=== PATIENT | female | born 1945 | race Caucasian/White ===

== ENCOUNTER → 2018-07-18 | Outpatient (CLI) | payer MEDICARE, BC | LOC: COL.RAD 09:45 | DX: N18.3 Chronic kidney disease, stage 3 (moderate) (principal); N28.89 Other specified disorders of kidney and ureter ==

== ENCOUNTER → 2019-04-04 | Outpatient (CLI) | payer MEDICARE | LOC: COL.RAD 13:47 | DX: M54.5 Low back pain (principal) ==

== ENCOUNTER → 2019-04-11 | Outpatient (CLI) | payer MEDICARE | LOC: COL.RAD 13:34 | DX: M51.26 Other intervertebral disc displacement, lumbar region (principal) ==

== ENCOUNTER → 2019-04-28 | Outpatient (CLI) | payer MEDICARE | LOC: COL.RAD 10:55 | DX: R93.2 Abnormal findings on diagnostic imaging of liver and biliary tract (principal); Z90.49 Acquired absence of other specified parts of digestive tract | CPT/HCPCS: Q9967 ==

== ENCOUNTER → 2019-05-13 | Outpatient (CLI) | payer MEDICARE | LOC: MC.RAD 15:30 | DX: Z12.31 Encounter for screening mammogram for malignant neoplasm of breast (principal); N63.10 Unspecified lump in the right breast, unspecified quadrant; N64.89 Other specified disorders of breast; Z85.3 Personal history of malignant neoplasm of breast ==

== ENCOUNTER → 2019-05-14 | Outpatient (CLI) | payer MEDICARE | LOC: COL.RAD 14:15 | DX: Z12.31 Encounter for screening mammogram for malignant neoplasm of breast (principal); R93.2 Abnormal findings on diagnostic imaging of liver and biliary tract; Z01.812 Encounter for preprocedural laboratory examination; K76.9 Liver disease, unspecified; I70.0 Atherosclerosis of aorta | CPT/HCPCS: Q9967 ==

== ENCOUNTER → 2019-05-30 | Outpatient (CLI) | payer MEDICARE | LOC: MC.RAD 10:30 | DX: N63.11 Unspecified lump in the right breast, upper outer quadrant (principal) ==

== ENCOUNTER 2019-07-17 15:36 | Emergency (ER) | payer MEDICARE ==
[~2019-07-17] VITALS: Ht 154.9 cm; Wt 63.6 kg
[~2019-07-17 15:36] MED LIST: FOLIC ACID 11 MG/TA1 PO; GLUCOTROL XL2.5 MG PO; INDERAL40 MG PO; LASIX 40MG TABL40 MG PO; LEVEMIR FLEX100 U/ML SQ; LIPITOR 40MG TA40 MG PO; NEXIUM 24HR20 M1 PO; NORCO 325 MG-51 TAB PO; PAXIL 20MG20 MG PO; VALIUM 5MG T5 MG/TAB PO
[2019-07-17 16:18] LABS: BASO # 0.1 (0.0-0.2); BASO % 0.7 % (0.0-2.0); EOS # 0.3 (0.0-0.7); EOS % 3.1 % (0-4.0); GRAN # 6.2 (1.4-6.5); GRAN % 73.2 % (42.2-75.2); HEMOGLOBIN 10.9 g/dl (12.5-16.0); LYMPH # 1.4 (1.2-3.4); LYMPH % 16.9 % (20.0-51.0); MEAN CELL VOLUME 91 fl (80.0-100.0); MEAN CORPUSCULAR HEMOGLOBIN 30 pg (27.0-31.0); MEAN CORPUSCULAR HGB CONC 33 g/dl (33.0-37.0); MONO # 0.5 (0.1-0.6); MONO % 5.9 % (1.7-9.3); PLATELET COUNT 279 K/mm3 (130-400); REDCELL DISTRIBUTION WIDTH-CV 14.5 % (11.5-14.5)
[2019-07-17 16:19] LABS: HEMATOCRIT 32.9 % (37.0-47.0)
[2019-07-17 16:25] LABS: ALBUMIN 4.2 gm/dL (3.5-5.0); BILIRUBIN,TOTAL 0.4 mg/dL (0.0-1.0); CALCIUM 9.4 mg/dL (8.4-10.2); CREATININE, serum 1.34 (0.52-1.25); POTASSIUM 4.3 mmol/L (3.4-5.0); TOTAL PROTEIN 7.2 gm/dL (6.4-8.2)
--- NOTE | 2019-07-17 16:56 | NUR ---
HUMBERTO ayala responded to the ED for a neonatal social worker consult due to the patient needing resources. 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 The patient receives nursing services that the insurance pays for from [facility] x weekly. The patient attempted to contact [address] [place] [address] but they have not contacted her back. HUMBERTO ayala to contact [address] [place] [address] for the patient. The patient reports she has a son that lives in [place] that will be support. The patient has a sister, Iva, an uncle,Mckay Chambers, and brother, Craig who will be her support during her chemo treatments. HUMBERTO ayala provided Medicare.gov's list of home health agencies and [place] [facility] for the patient to consider for her mother's care during this time. HUMBERTO ayala inquired about grocery shopping and the patient reports she has had [employer] delivery when she lived in [place] and will consider having them deliver her groceries. HUMBERTO ayala collaborated the above information with the patient's nurse and ED doctor.
[2019-07-17 17:06] LABS: COLLECTION METHOD CLEAN CATCH
[2019-07-17 17:26] LABS: MUCOUS Present /lpf; PH 5 (5-8); SQUAMOUS EPITHELIAL 0-2 /hpf; URINE APPEARANCE Hazy; URINE BACTERIA Rare /hpf; URINE BILIRUBIN Negative (NEGATIVE); URINE BLOOD 1+ (NEGATIVE); URINE COLOR Yellow; URINE GLUCOSE 2+ (NEGATIVE); URINE KETONE Negative (NEGATIVE); URINE LEUKOCYTE ESTERASE Negative (NEGATIVE); URINE NITRATE Negative (NEGATIVE); URINE PROTEIN(semi-quant) 2+ (NEGATIVE); URINE RBC 0-2 /hpf; URINE UROBILINOGEN Negative (NEGATIVE)
[2019-07-17 17:43] VITALS: BP 136/51; PULSE 75; TEMP 98.4
== END 2019-07-17 18:15 | disposition home or self-care (01) ==
LOC: COL.ER 15:36
PROVIDERS: Family Medicine
DX: C50.919 Malignant neoplasm of unspecified site of unspecified female breast (principal); R53.1 Weakness; W19.XXXA Unspecified fall, initial encounter
CPT/HCPCS: J7030

== ENCOUNTER 2019-11-13 13:56 | Inpatient (IN) | payer MEDICARE ==
[~2019-11-13] VITALS: Ht 154.9 cm; Wt 61.7 kg
[2019-11-13 15:45] LABS: BASO # 0.1 (0.0-0.2); BASO % 0.6 % (0.0-2.0); EOS # 0.1 (0.0-0.7); EOS % 0.7 % (0-4.0); GRAN # 6.1 (1.4-6.5); GRAN % 67.7 % (42.2-75.2); HEMOGLOBIN 10.1 g/dl (12.5-16.0); LYMPH # 1.8 (1.2-3.4); LYMPH % 20.4 % (20.0-51.0); MEAN CELL VOLUME 88 fl (80.0-100.0); MEAN CORPUSCULAR HEMOGLOBIN 29 pg (27.0-31.0); MEAN CORPUSCULAR HGB CONC 33 g/dl (33.0-37.0); MEAN PLATELET VOLUME 8.9 fl (7.4-10.4); MONO # 0.9 (0.1-0.6); MONO % 10.3 % (1.7-9.3); PLATELET COUNT 344 K/mm3 (130-400); RED BLOOD COUNT 3.52 M/mm3 (4.10-5.30); REDCELL DISTRIBUTION WIDTH-CV 14.4 % (11.5-14.5)
[2019-11-13 16:00] LABS: ALANINE AMINOTRANSFERASE 9 U/L (4-34); ALBUMIN 3.8 gm/dL (3.5-5.0); ALKALINE PHOSPHATASE 130 U/L (50-136); ANION GAP 8 mmol/L (7-16); AST,SGOT 21 U/L (15-37); BILIRUBIN,TOTAL 0.5 mg/dL (0.0-1.0); BLOOD UREA NITROGEN 23 mg/dL (7-17); C-REACTIVE PROTEIN 3.7 mg/dL (0.0-0.9); CALCIUM 9.1 mg/dL (8.4-10.2); CARBON DIOXIDE 27 mmol/L (22-30); CHLORIDE 101 mmol/L (98-107); CREATININE, serum 1.53 (0.52-1.25); GLUCOSE 131 mg/dL (74-106); LIPASE 33 U/L (23-300); POTASSIUM 4.2 mmol/L (3.4-5.0); SODIUM 137 mmol/L (137-145); TOTAL PROTEIN 7.1 gm/dL (6.4-8.2)
[2019-11-13 16:10] LABS: TROPONIN-I < 0.012 ng/mL (0.000-0.035)
[2019-11-13 16:36] LABS: COLLECTION METHOD CATHETER
[2019-11-13 16:44] LABS: PH 5 (5-8); URINE APPEARANCE Cloudy; URINE BACTERIA Rare /hpf; URINE BILIRUBIN Negative (NEGATIVE); URINE BLOOD 1+ (NEGATIVE); URINE COLOR Yellow; URINE GLUCOSE Negative (NEGATIVE); URINE KETONE Negative (NEGATIVE); URINE LEUKOCYTE ESTERASE Negative (NEGATIVE); URINE NITRATE Negative (NEGATIVE); URINE PROTEIN(semi-quant) 2+ (NEGATIVE); URINE UROBILINOGEN Negative (NEGATIVE)
[2019-11-13 17:52] VITALS: BP 156/62; PULSE 75; TEMP 98.4
--- NOTE | 2019-11-13 19:21 | NUR ---
patiet is alert and oriented, hard of hearing. 1-1 assist. report given to night nurse AYDIN Gordon.
[2019-11-13 19:24] VITALS: BP 133/60; PULSE 85; TEMP 98.7
--- NOTE | 2019-11-13 20:25 | NUR ---
Patient assessed at this time. Alert and oriented, and able to make needs known. Patient put on high fall risk due to recent history of falls. Voices understanding. Denies having pain and discomfort at this time. Peripheral IV to left hand. Denies having SOB and dypsnea. LS CTA. Respirations even and unlabored. HRR. Capillary refill less than 3 seconds. Non-tenting skin turgor. BSAx4. Abdomen soft and non-tender. 1+ edema BLE. Voices no questions, needs, or concerns at this time. Resting in bed with call light within reach.
--- NOTE | 2019-11-13 21:47 | NUR ---
Upon reviewing ordes, patient has orders for telemetry. Called tele, and updated. Getting new box and will dog license officer supervisor at this time.
[2019-11-13 23:42] VITALS: BP 161/63; PULSE 74; TEMP 98.6
[2019-11-14 03:02] VITALS: BP 158/60; PULSE 83; TEMP 99.5
--- NOTE | 2019-11-14 05:30 | NUR ---
Patient has denied having pain and discomfort this shift. High fall risk precautions in place. One assist with going to the bathroom. Denies having any questions, needs, or concerns. Resting in bed with call light within reach.
--- NOTE | 2019-11-14 05:55 | NUR ---
Patient complaining of level 10 pain to right leg at this time. Given PRN APAP per orders. Voices no further questions, needs, or concerns at this time.
[2019-11-14 06:50] LABS: BASO # 0.1 (0.0-0.2); BASO % 0.6 % (0.0-2.0); EOS # 0.2 (0.0-0.7); EOS % 2.4 % (0-4.0); GRAN # 4.8 (1.4-6.5); GRAN % 62.1 % (42.2-75.2); HEMATOCRIT 30.1 % (37.0-47.0); HEMOGLOBIN 9.7 g/dl (12.5-16.0); LYMPH # 1.9 (1.2-3.4); MEAN CELL VOLUME 89 fl (80.0-100.0); MEAN CORPUSCULAR HEMOGLOBIN 29 pg (27.0-31.0); MEAN CORPUSCULAR HGB CONC 32 g/dl (33.0-37.0); MEAN PLATELET VOLUME 9.2 fl (7.4-10.4); MONO # 0.7 (0.1-0.6); MONO % 9.5 % (1.7-9.3); PLATELET COUNT 361 K/mm3 (130-400); REDCELL DISTRIBUTION WIDTH-CV 14.5 % (11.5-14.5)
[2019-11-14 07:01] VITALS: BP 150/64; PULSE 89; TEMP 99.4
[2019-11-14 07:10] LABS: ALBUMIN 3.5 gm/dL (3.5-5.0); BILIRUBIN,TOTAL 0.5 mg/dL (0.0-1.0); CREATININE, serum 1.35 (0.52-1.25); POTASSIUM 3.7 mmol/L (3.4-5.0); TOTAL PROTEIN 6.8 gm/dL (6.4-8.2)
[2019-11-14 07:32] LABS: TSH w REFLEX 1.75 uIU/mL (0.465-4.680)
--- NOTE | 2019-11-14 10:08 | NUR ---
Pt assessment completed and charted, medications administered per MAR. Pt is A&O, sitting in bed, post working with therapy. Pt has LH INT IV that flushes w/o complications. Pt on room air, breathing is even and unlabored, denies SOB at this time. Pt denies any significant knee pain but has chronic bilateral knee pain. Denies need for pain medication at this time. Pt denies N/V/D, chest pain, or palpitations. No further needs at this time.
[2019-11-14 15:26] VITALS: BP 141/60; PULSE 70; TEMP 98.8
--- NOTE | 2019-11-14 15:28 | NUR ---
Manager Of [facility] contacted patient on her cell (ph#[phone]) to discuss discharge planning. Patient lives in [place] with her mom although patient reports her mom is currently at [facility]. Patient sees Dr. Pina for primary care and obtains medications from [facility]. Patient has a cane and walker at home. SW discussed PT/OT recommendations with patient who is agreeable to have referrals sent to [facility]. SW contacted Queta [facility] Director who will screen referral. SW contacted Cony at [facility] and faxed referral. Patient states her emergency contact would be her son, Shola (ph#[phone]). Patient states her sister, Kat is also a contact (ph#[phone]). SW to continue to follow.
--- NOTE | 2019-11-14 15:44 | NUR ---
Pt assisted to bathroom, 1 assist with walker, pt moves slowly and needs assistance getting in and out of bed, pt weak. Pt states she is having knee pain and currently rating it 9/10, provided with tylenol PRN per MAR. No other concerns expressed.
--- NOTE | 2019-11-14 15:48 | NUR ---
Maintenance Scheduler spoke with Titus at [facility] to provide update on discharge plan. SW to continue to follow.
--- NOTE | 2019-11-14 16:48 | NUR ---
Cony from [facility] advised they can accept referral. SW to continue to follow.
--- NOTE | 2019-11-14 17:33 | NUR ---
Pt BS checked, reading 60, provided with juice. Dinner will be served shortly and recheck BS. No further needs.
--- NOTE | 2019-11-14 17:36 | NUR ---
JOANNA sandy, patient at 102.
[2019-11-14 19:17] VITALS: BP 127/50; PULSE 76; TEMP 98.8
--- NOTE | 2019-11-14 20:45 | NUR ---
Patient assessed at this time. Alert and oriented x 4, and able to make needs known. Denies having pain and discomfort at this time. Peripheral IV to left hand. LS CTA. Respirations even and unlabored. Denies SOB and dyspnea. HRR. Murmur present. Telemetry: normal sinus. Capillary refill less than 3 seconds. Non-tenting skin turgor. BSAx4. Abdomen soft and non-tender. 1+ edema BLE. Voices no questions, needs, or concerns at this time. Resting in bed with call light within reach.
[2019-11-14 23:11] VITALS: BP 124/46; PULSE 72; TEMP 99.2
[2019-11-15 03:45] VITALS: BP 134/48; PULSE 65; TEMP 99.2
--- NOTE | 2019-11-15 05:46 | NUR ---
Patient has been calling for assistance with going to the bathroom. No complaints of pain or discomfort until this morning. Given PRN APAP as requested for knee pain.
[2019-11-15 06:55] LABS: CALCIUM 9.1 mg/dL (8.4-10.2); CREATININE, serum 1.54 (0.52-1.25); POTASSIUM 3.6 mmol/L (3.4-5.0)
[2019-11-15 07:12] LABS: BASO # 0.1 (0.0-0.2); BASO % 0.8 % (0.0-2.0); EOS # 0.2 (0.0-0.7); EOS % 2.8 % (0-4.0); GRAN # 5.6 (1.4-6.5); GRAN % 66.5 % (42.2-75.2); LYMPH # 1.7 (1.2-3.4); LYMPH % 19.6 % (20.0-51.0); MEAN CELL VOLUME 89 fl (80.0-100.0); MEAN CORPUSCULAR HGB CONC 32 g/dl (33.0-37.0); MEAN PLATELET VOLUME 9.4 fl (7.4-10.4); MONO # 0.8 (0.1-0.6); MONO % 9.8 % (1.7-9.3); PLATELET COUNT 376 K/mm3 (130-400); RED BLOOD COUNT 3.47 M/mm3 (4.10-5.30); REDCELL DISTRIBUTION WIDTH-CV 14.6 % (11.5-14.5)
[2019-11-15 07:24] LABS: HEMOGLOBIN 9.9 g/dl (12.5-16.0); MEAN CORPUSCULAR HEMOGLOBIN 29 pg (27.0-31.0)
[2019-11-15 07:38] VITALS: BP 130/49; PULSE 76; TEMP 99
[2019-11-15 10:57] VITALS: BP 106/59; PULSE 68; TEMP 98.5
[2019-11-15 15:41] VITALS: BP 124/49; PULSE 72; TEMP 100
[2019-11-15] MEDS ORDERED: LOVENOX 3030 MG/0.3 SQ (15:58)
[2019-11-15] MEDS ORDERED: TYLENOL 325MG325 MG PO (15:59)
[2019-11-15] MEDS ORDERED: INDERAL40 MG PO (15:59)
[2019-11-15] MEDS ORDERED: ZESTRIL 10MG10 MG PO (15:59)
[2019-11-15] MEDS ORDERED: LEVEMIR100 U/ML SQ (16:00)
[2019-11-15] MEDS ORDERED: NOVOLOG 100U100 U/M1 SQ (16:01)
--- NOTE | 2019-11-15 18:19 | NUR ---
PATIENT DISCHARGED TO [facility] THIS HOSPITAL @ 1820. LEFT UNIT IN ACCOMPANIED BY PCT. PHONE REPORT GIVEN TO LAYO RECEIVING NURSE. TRANSFER PAPERWORK SENT WITH PATIENT. NO QUESTIONS OR CONCERNS AND END OF REPORT.
== END 2019-11-15 18:20 | DRG 92 ==
LOC: COL.ER 13:56 → MEDICAL 17:09
PROVIDERS: Emergency Medicine; Physician Assistant; ADMIT Student in an Organized Health Care Education/Training Program
DX: G72.0 Drug-induced myopathy (principal); I50.32 Chronic diastolic (congestive) heart failure; I13.0 Hypertensive heart and chronic kidney disease with heart failure and stage 1 through stage 4 chronic kidney disease, or unspecified chronic kidney disease; E78.5 Hyperlipidemia, unspecified; I10 Essential (primary) hypertension; K21.9 Gastro-esophageal reflux disease without esophagitis; E11.22 Type 2 diabetes mellitus with diabetic chronic kidney disease; E11.649 Type 2 diabetes mellitus with hypoglycemia without coma; T45.1X5A Adverse effect of antineoplastic and immunosuppressive drugs, initial encounter; N18.9 Chronic kidney disease, unspecified; J84.10 Pulmonary fibrosis, unspecified; G47.00 Insomnia, unspecified; I35.0 Nonrheumatic aortic (valve) stenosis; R53.81 Other malaise; Z92.3 Personal history of irradiation; Z85.3 Personal history of malignant neoplasm of breast; Z92.21 Personal history of antineoplastic chemotherapy; Z79.4 Long term (current) use of insulin; Z88.0 Allergy status to penicillin; Z88.2 Allergy status to sulfonamides; Z88.6 Allergy status to analgesic agent
CPT/HCPCS: 99222-AI; 99231-AI; 99239; J1650; J1815; J7030

== ENCOUNTER 2019-11-15 16:49 | Inpatient (IN) | payer MEDICARE ==
[~2019-11-15] VITALS: Ht 154.9 cm; Wt 59.8 kg
[~2019-11-15 16:49] MED LIST changes: +LEVEMIR100 U/ML SQ; +LOVENOX 3030 MG/0.3 SQ; +NOVOLOG 100U100 U/M1 SQ; +TYLENOL 325MG325 MG PO; +ZESTRIL 10MG10 MG PO
--- NOTE | 2019-11-15 20:00 | NUR ---
Received report from AYDIN Cole. Pt is currently sitting up in bed. Her call light is within reach and her bed is in lowest position and alarm is on.
[2019-11-15 21:58] VITALS: BP 151/56; PULSE 93; TEMP 98.2
--- NOTE | 2019-11-15 23:00 | NUR ---
Pt is currently lying in bed. Pt does not have any complaints of pain at this time. Pt was able to take her night medication with water. Pt did have a snack before bed. Pt vitals were within normal limits, lungs sounds were clear, heart sounds were normal S1 and S2 sounds. Pt bowel sounds were audible in all quads. Pt was able to ambulate to the rest room with a gait belt and walker. Pt has her call light within reach and her bed is in lowest position and her alarm is on.
--- NOTE | 2019-11-16 03:32 | NUR ---
Pt has slept well during the night the pt just got back in bed. She called to go to the restroom at about 0300. Pt has her call light within reach and her bed is in lowest position. Pt has been tolerating fluids well. Pt bed alarm is on.
[2019-11-16 06:20] VITALS: BP 142/54; PULSE 81; TEMP 98.4
--- NOTE | 2019-11-16 07:27 | NUR ---
Reported off to AYDIN Cole. Pt sitting up in bed eating her breakfast. Call light within reach and bed in lowest position and bed alarm on.
--- NOTE | 2019-11-16 10:28 | NUR ---
Patient resting in bed at this time, call light in reach, bed alarm set. Patient was a Mod assist with walker requiring staff to help with lifting her stand, but after she was standing only required staff to hold on to steady her at times with her gait belt. Will continue to monitor.
--- NOTE | 2019-11-16 13:52 | NUR ---
SW conducted interview via telephone. Patient indicated that she resides at home alone and that her mother is currently at [facility]. Patient reported that she did not have anyone for care support, but that she has a sister named Iva [phone] who lives in [facility] and a son that lives in [place] (Shola). Patient reported that she did not have a DPOA, and that Dr. Pina is her PCP, she does not have any upcoming appointments. Patient reports that she currently uses a walker, and that she takes 2 units of O2 at night. Patient rports that she gets her emdications from [facility] on with no concerns. Patient reports that she does receive [facility] services on . SW will continue to follow.
[2019-11-16 17:19] VITALS: BP 135/43; PULSE 62; TEMP 98.3
--- NOTE | 2019-11-16 19:26 | NUR ---
Patient tolerated diet well this shift. Patient had a family member drop off some items for her today: ipad, clothes, shoes, billfold. These items were documented in the Initial assessment items list. Patient received some educational material this afternoon. Denied any questions this evening.
--- NOTE | 2019-11-16 19:26 | NUR ---
PATIENT RESTING IN BED DURING CHANGE OF SHIFT REPORT FROM DAY SHIFT NURSEYUDELKA. BED ALARM ON. NO NEEDS REPORTED.
--- NOTE | 2019-11-16 19:33 | NUR ---
Reported off to night nurse.
--- NOTE | 2019-11-17 00:18 | NUR ---
PATIENT SLEEPING, DOES NOT AWAKEN WHEN DOOR TO ROOM IS OPENED BY STAFF, OBSERVING BREATHING NONLABORED AND EVEN. BED ALARM ON.
[2019-11-17] MEDS ORDERED: VALIUM 5MG T5 MG/TAB PO (00:39)
--- NOTE | 2019-11-17 00:52 | NUR ---
PATIENT REQUESTING SLEEPING PILL, STATES NORMALLY TAKES VALIUM AT HOME "IT'S THE ONLY THING THAT HELPS ME SLEEP". CALLED HOSPITALIST/PROVIDER SHIRT IRONER SUPERVISOR, IZA, REPORTED PATIENT'S REQUEST, ORDER PUT IN BY PROVIDER. INFORMED PATIENT OF ORDER GIVEN AND WILL GIVE WHEN MED AVAILABLE. NO OTHER NEEDS REPORTED. BED ALARM ON.
[2019-11-17 03:07] VITALS: BP 135/46; PULSE 68; TEMP 98.4
--- NOTE | 2019-11-17 04:40 | NUR ---
Patient sleeping, does not awaken when door to room is opened by staff, breathing nonlabored and even. Bed alarm on.
--- NOTE | 2019-11-17 05:33 | NUR ---
FSBS RESULT 76, AGREED TO OFFER OF ORANGE JUICE PRIOR TO BREAKFAST TRAYS ARRIVAL. NO OTHER NEEDS REPORTED. BED ALARM ON.
[2019-11-17 06:36] LABS: BASO # 0.1 (0.0-0.2); BASO % 0.7 % (0.0-2.0); EOS # 0.3 (0.0-0.7); EOS % 3.1 % (0-4.0); GRAN # 5.3 (1.4-6.5); GRAN % 63.8 % (42.2-75.2); HEMOGLOBIN 11.5 g/dl (12.5-16.0); LYMPH # 1.9 (1.2-3.4); LYMPH % 22.5 % (20.0-51.0); MEAN CELL VOLUME 89 fl (80.0-100.0); MEAN CORPUSCULAR HEMOGLOBIN 29 pg (27.0-31.0); MEAN CORPUSCULAR HGB CONC 33 g/dl (33.0-37.0); MEAN PLATELET VOLUME 9.3 fl (7.4-10.4); MONO # 0.8 (0.1-0.6); MONO % 9.4 % (1.7-9.3); PLATELET COUNT 399 K/mm3 (130-400); RED BLOOD COUNT 3.91 M/mm3 (4.10-5.30); REDCELL DISTRIBUTION WIDTH-CV 14.3 % (11.5-14.5)
[2019-11-17 06:40] LABS: HEMATOCRIT 34.8 % (37.0-47.0)
[2019-11-17 06:49] LABS: ALBUMIN 3.8 gm/dL (3.5-5.0); BILIRUBIN,TOTAL 0.4 mg/dL (0.0-1.0); CALCIUM 9.6 mg/dL (8.4-10.2); CREATININE, serum 1.43 (0.52-1.25); POTASSIUM 3.8 mmol/L (3.4-5.0); TOTAL PROTEIN 7.3 gm/dL (6.4-8.2)
--- NOTE | 2019-11-17 07:03 | NUR ---
PATIENT RESTING IN BED DURING CHANGE OF SHIFT REPORT GIVEN TO DAY SHIFT NURSEDRAKE. BED ALARM ON.
--- NOTE | 2019-11-17 11:20 | NUR ---
SW met with the patient to introduce oneself and to dicuss any concerns or needs. The patient states "everything is okay." Will continue to monitor.
[2019-11-17 16:01] VITALS: BP 113/46; PULSE 59; TEMP 98.2
--- NOTE | 2019-11-17 19:25 | NUR ---
PATIENT RESTING IN BED DURING CHANGE OF SHIFT REPORT FROM DAY SHIFT NURSEDRAKE. BED ALARM TURNED ON, PATIENT REMINDED TO CALL FOR ALL OUT OF BED ACTIVITIES.
--- NOTE | 2019-11-18 01:04 | NUR ---
PATIENT SLEEPING, DOES NOT AWAKEN WHEN ROOM ENTERED BY STAFF AND OBSERVED BREATHING NONLABORED AND EVEN. BED ALARM ON.
--- NOTE | 2019-11-18 03:13 | NUR ---
Patient sleeping, does not awaken when door to room is opened by staff. Observed breathing pattern as nonlabored and even. Bed alarm on.
[2019-11-18 05:16] VITALS: BP 105/51; PULSE 56; TEMP 97.5
--- NOTE | 2019-11-18 07:16 | NUR ---
Patient sleeping in bed during change of shift report given to day shift nurseViktoriya. Patient aroused with name and gentle shaking by staff. Bed alarm on.
--- NOTE | 2019-11-18 08:40 | NUR ---
PT IN BED SLEEPING, RAISED VOICE REQUIRED TO GET PT ATTENTION, PT HARD OF HEARING BILATERALLY. PT COMPLAINT OF YANET KNEE PAIN, KPAD READJUSTED TO LAY ON YANET KNEES, PT STATED THAT HELPED HER DISCOMFORT, PT ALERT AND ORIENTED, PT PLEASANT, MEDICATIONS GIVEN, ASSESSMENT PERFORMED, SLIGHT YANET ANKLE EDEMA NOTED, NO OTHER NEEDS AT THIS TIME.
--- NOTE | 2019-11-18 09:03 | NUR ---
Clinical Liaison had left message w/ [employer] on 11/15/19, regarding admission to [facility]. She contacted them on 11/17/19 & received reference auth #[id number] & was told no clinicals are needed during hospitalization.
--- NOTE | 2019-11-18 09:26 | NUR ---
JULIANA MERIDA, REPORTED THAT PT UTILIZED WALKER TO MAKE IT TO BATHROOM, PT CONTINENT, WEARS BRIEF, PERFORMED TOILETING ABILITIES INDEPENDENTLY.
--- NOTE | 2019-11-18 13:05 | NUR ---
Admission QIM scores were reviewed by the team. Code of 4 for toileting hygiene was determined by team discussion to be the most usual performance before interventions for this patient during the assessment period. Code of 3 chosen for rolling left to right was determined by team discussion to be the most usual performance before interventions for this patient during the assessment period. Code of 3 chosen for chair/bed to chair transfer was determined by team discussion to be the most usual performance for this patient during the assessment period.--Queta Trivedi, PD
--- NOTE | 2019-11-18 14:52 | NUR ---
NO SNACK BROUGHT UP FROM KITCHEN.
--- NOTE | 2019-11-18 15:31 | NUR ---
SW met with the patient and the patient's son, Shola (via telephone) to discuss the family meeting choices 11/18 at 1330 or 1345 or 11/19 at 1300. The patient and Shola were agreeable to a family meeting on Sunday, 11/18, via telephone at 1330. Will continue to follow.
[2019-11-18 15:38] VITALS: BP 103/39; PULSE 67; TEMP 98.2
--- NOTE | 2019-11-18 15:47 | NUR ---
JULIANA MERIDA, NOTIFED ME OF A BP OF 103/39. THIS ALONG THE SAME SIMILAR TREND THROUGHOUT THE DAY. SERG OLIVAREZ NOTIFIED AND STATED THEY WOULD HOLD LISINOPRIL TOMORROW.
--- NOTE | 2019-11-18 17:00 | NUR ---
PT STAND BY ASSIST TO BATHROOM. PT INDEPENDENT WITH SITTING, STANDING FROM COMMODE AND WIPING HERSELF, PERFORMING HAND HYGIENE BY HERSELF, PT REFUSED ORAL HYGIENE TODAY SINCE SHE NORMALLY DOESN'T WEAR HER DENTURES, PT HAD STEADY GAIT USING WALKER DURING AMBULATION TO RESTROOM. PT USES CALL LIGHT WHEN SHE NEEDS TO GET UP.
--- NOTE | 2019-11-18 18:45 | NUR ---
PATIENT RESTING IN BED DURING CHANGE OF SHIFT REPORT FROM DAY SHIFT NURSEBRANDON. BED ALARM ON, NO NEEDS REPORTED.
--- NOTE | 2019-11-19 00:27 | NUR ---
PATIENT SLEEPING, DOES NOT AWAKEN WHEN DOOR TO ROOM IS OPENED BY STAFF. OBSERVED BREATHING NONLABORED AND EVEN. BED ALARM ON.
[2019-11-19 04:34] VITALS: BP 113/43; PULSE 70; TEMP 98.1
--- NOTE | 2019-11-19 07:35 | NUR ---
PATIENT RESTING IN BED DURING CHANGE OF SHIFT REPORT GIVEN TO DAY SHIFT NURSEDRAKE. BED ALARM ON.
[2019-11-19 13:25] VITALS: BP 111/48; PULSE 63; TEMP 97.9
--- NOTE | 2019-11-19 16:27 | NUR ---
FLEX attended a family meeting today with the patient and the patient's son, Shola (via telephone). Also present was Queta, [facility] Director, PT/OT. Queta started the meeting with it's purpose. PT/OT then discussed the patient's progress. All questions and concerns were addressed. The patient's tentative discharge date is Sunday, 11/21 with home health services. After the meeting, FLEX met with the patient to discuss home health. The patient already receives services with [facility] and would like to continue with them. The patient's son was agreeance with continuing with the current agency. Shola was also concerned about the patient's depression and receiving services for mental health. FLEX contacted Ely with [facility] to confirm that they have a mental health nurse on staff. FLEX attempted to contact Shola to give him this information, left message. Will continue to follow.
--- NOTE | 2019-11-19 21:34 | NUR ---
PT IN BED, IS ALERT AND ORIENTED X4, SLIGHTLY HARD OF HEARING. TAKES HS MEDS INCLUDING VALIUM FOR SLEEP. ASSISTED TO BATHROOM, SLOW STEADY GAIT. BED ALARM ON WHEN RETURNED TO BED.
--- NOTE | 2019-11-20 02:00 | NUR ---
Assisted to bathroom, voids and back to bed. Was incontinent and depends were changed.
[2019-11-20 05:59] VITALS: BP 143/62; PULSE 73; TEMP 97.7
--- NOTE | 2019-11-20 06:06 | NUR ---
VS taken, assisted to bathroom and back to bed. Pt did not want to stay up in chair at this time.
--- NOTE | 2019-11-20 07:22 | NUR ---
REPORT FROM GABY PERRIN. PT SLEPT THROUGH REPORT.
--- NOTE | 2019-11-20 09:48 | NUR ---
PT UP WITH THERAPY, AM MEDS GIVEN ORDERED, PT TOOK MEDICATIONS WITH APPLE SAUCE INDEPENDENTLY. OT WORKING WITH PT AT THIS TIME.
--- NOTE | 2019-11-20 14:36 | NUR ---
FLEX faxed updates to Ely at [facility]. FLEX contacted the patient's son, Shola to inform him that [facility] does have a mental health services. He was pleased to here this. Will continue to monitor.
--- NOTE | 2019-11-20 15:30 | NUR ---
ASSISTED PT TO BATHROOM. PT HAD LG FORMED STOOL AND VOIDED THEN RETURNED TO BED.
[2019-11-20 16:39] VITALS: BP 131/48; PULSE 64; TEMP 98.3
--- NOTE | 2019-11-20 18:55 | NUR ---
REPORT TO AXEL PERRIN
--- NOTE | 2019-11-20 20:00 | NUR ---
Received report from AYDIN Calabrese. Pt currently lying in bed. Pt ambulated to the restroom with walker, gait belt and stand by assistance. Pt has her call light within reach and her bed is in lowest position and alarm is on .
--- NOTE | 2019-11-20 23:35 | NUR ---
Pt is curently sleeping in bed. Pt has no complaints of pain at this time. Pt lungs sounds were clear and heart sounds were normal S1 and S2 sounds. Pt was able to take all he evening medications. She requested to take them with applesause. She also requested one of there Valium 5 mg to help her rest well tonight. She ambulated to the bathroom with gait belt and walker, stand by assistance was needed. She has no other concerns at this time. Her call light is within reach and her bed is in lowest position and alarm is on.
--- NOTE | 2019-11-21 04:32 | NUR ---
Pt currently sleeping in bed. Pt has her call light within reach and her bed is in lowest position
--- NOTE | 2019-11-21 04:34 | NUR ---
Pt called out for something for pain. Pt stated that her pain was at a 9. She was given pain medication at this time. Pt ABD pad was changed and area was cleaned with soapy water and dried.There is still bloody yellow drainage from underneath her pannus area Pt has not had another bowel movement. She stated that she is passing gas. Pt in back in bed and call light is within reach.
[2019-11-21 05:19] VITALS: BP 132/48; PULSE 75; TEMP 98.4
--- NOTE | 2019-11-21 06:48 | NUR ---
Pt ambulated to the restroom with gait belt and walker, standby assist. Pt is now back in be and her call light is within reach and her bed is in lowest position and alarm is on.
--- NOTE | 2019-11-21 07:32 | NUR ---
Reported off to AYDIN Cole. Pt has ate her breakfast. She is sittin up in her bed. Her call light is within reach and her bed is in lowest positon.
--- NOTE | 2019-11-21 10:29 | NUR ---
Patient resting in bed at this time, call light in reach and alarm is set. Patient attending therapies today. Given prn Tylenol for bilateral knee pain and low back pain.
[2019-11-21] MEDS ORDERED: ZESTRIL 10MG10 MG PO (11:22)
[2019-11-21] MEDS ORDERED: GLUCOTROL XL2.5 MG PO (11:26)
[2019-11-21 16:50] VITALS: BP 126/55; PULSE 63; TEMP 98.3
--- NOTE | 2019-11-21 19:27 | NUR ---
Patient resting in bed is independent in her room. She has tolerated diet well this shift. Denies any questions. Appointment has been scheduled for PCP, but Pulmonology office was closed today so she will need to follow up with Dr. Nguyen this next week. See discharge appointments for details.
--- NOTE | 2019-11-21 21:30 | NUR ---
PT UP AND ABOUT IN ROOM. FEEL STEADY. USES WHEELED WALKER. DENIES PAIN BUT REQUEST VALIUM FOR SLEEP. ENC TO CALL STAFF IF UNSTEADY AT ALL. ACCUCHECK 307. GAVE SCHEDULED LEVEMIER AND SSI. ENC PT TO EAT ALL OF HS SNACK. CALL LIGHT IN REACH.
[2019-11-22 05:50] VITALS: BP 130/56; PULSE 68; TEMP 98.2
--- NOTE | 2019-11-22 07:40 | NUR ---
Patient in bed resting. Alert and oriented x3. Assessment complete. Denies pain at this time. Patient up to restroom, stand by assist with walker, states she always feels a little stiff when she first gets up in the AM. Steady gait. Denies further needs at this time.
--- NOTE | 2019-11-22 08:00 | NUR ---
PATIENT RESTING IN BED. PATIENT IS A&O x3. ASSESSMENT COMPLETE AND MEDICATIONS GIVEN. PATIENT INDEPENDENT TO BATHROOM. NO FURTHER NEEDS AT THIS TIME.
--- NOTE | 2019-11-22 10:01 | NUR ---
SW informed of DC, Attempted call to son Shola, no answer or Identifiable VM. no message left. Faxed DC orders to [facility] at [phone]. Spoke with nurse they are able to admit tomorrow or sunday. Nothing Follows
[2019-11-22 12:06] VITALS: BP 144/52; PULSE 66; TEMP 97.5
--- NOTE | 2019-11-22 12:40 | NUR ---
Discharge education provided to patient. Educated on follow up appointment and when to call physician. All questions answered. Patient dressed independently. Denies pain or further needs at this time. Patient out by wheelchair with surgical staff.
== END 2019-11-22 12:40 | disposition home or self-care (01) | DRG 948 ==
PROVIDERS: ADMIT Internal Medicine
DX: R53.81 Other malaise (principal); I50.32 Chronic diastolic (congestive) heart failure; I13.0 Hypertensive heart and chronic kidney disease with heart failure and stage 1 through stage 4 chronic kidney disease, or unspecified chronic kidney disease; G72.9 Myopathy, unspecified; E11.649 Type 2 diabetes mellitus with hypoglycemia without coma; E11.22 Type 2 diabetes mellitus with diabetic chronic kidney disease; E78.5 Hyperlipidemia, unspecified; I08.0 Rheumatic disorders of both mitral and aortic valves; K21.9 Gastro-esophageal reflux disease without esophagitis; G47.00 Insomnia, unspecified; N18.9 Chronic kidney disease, unspecified; J84.10 Pulmonary fibrosis, unspecified; Z79.4 Long term (current) use of insulin; Z88.0 Allergy status to penicillin; Z88.2 Allergy status to sulfonamides; Z88.6 Allergy status to analgesic agent; Z85.3 Personal history of malignant neoplasm of breast
CPT/HCPCS: 99222-AI; 99231-AI; 99232-AI; 99239; J1650; J1815

== ENCOUNTER 2019-12-23 13:52 | Emergency (ER) | payer MEDICARE ==
[~2019-12-23] VITALS: Ht 154.9 cm; Wt 60.5 kg
[2019-12-23 13:56] VITALS: TEMP 98.2
[2019-12-23 14:28] LABS: BASO % 0.5 % (0.0-2.0); EOS # 0.2 (0.0-0.7); EOS % 2.5 % (0-4.0); GRAN # 5.8 (1.4-6.5); GRAN % 77.2 % (42.2-75.2); HEMOGLOBIN 11.5 g/dl (12.5-16.0); LYMPH % 13.4 % (20.0-51.0); MEAN CELL VOLUME 90 fl (80.0-100.0); MEAN CORPUSCULAR HEMOGLOBIN 30 pg (27.0-31.0); MEAN CORPUSCULAR HGB CONC 33 g/dl (33.0-37.0); MEAN PLATELET VOLUME 9.6 fl (7.4-10.4); MONO # 0.5 (0.1-0.6); PLATELET COUNT 155 K/mm3 (130-400); RED BLOOD COUNT 3.82 M/mm3 (4.10-5.30); REDCELL DISTRIBUTION WIDTH-CV 14.3 % (11.5-14.5)
[2019-12-23] MEDS ORDERED: LEVEMIR FLEX100 U/ML SQ (14:30)
[2019-12-23 14:32] LABS: ALBUMIN 3.6 gm/dL (3.5-5.0); BILIRUBIN,TOTAL 0.4 mg/dL (0.0-1.0); CALCIUM 9.3 mg/dL (8.4-10.2); CREATININE, serum 1.09 (0.52-1.25); POTASSIUM 4.3 mmol/L (3.4-5.0); TOTAL PROTEIN 6.6 gm/dL (6.4-8.2)
[2019-12-23 14:37] LABS: HEMATOCRIT 34.4 % (37.0-47.0)
[2019-12-23 14:56] LABS: COLLECTION METHOD CLEAN CATCH
[2019-12-23 15:02] LABS: PH 7 (5-8); SQUAMOUS EPITHELIAL None Seen /hpf; URINE APPEARANCE Clear; URINE BACTERIA None Seen /hpf; URINE BILIRUBIN Negative (NEGATIVE); URINE BLOOD Negative (NEGATIVE); URINE COLOR Straw; URINE GLUCOSE Negative (NEGATIVE); URINE KETONE Negative (NEGATIVE); URINE LEUKOCYTE ESTERASE Negative (NEGATIVE); URINE NITRATE Negative (NEGATIVE); URINE PROTEIN(semi-quant) 2+ (NEGATIVE); URINE RBC 0-2 /hpf; URINE UROBILINOGEN Negative (NEGATIVE)
[2019-12-23 15:25] VITALS: BP 148/47; PULSE 80
== END 2019-12-23 15:26 | disposition home or self-care (01) ==
LOC: COL.ER 13:52
PROVIDERS: Nurse Practitioner
DX: E11.649 Type 2 diabetes mellitus with hypoglycemia without coma (principal); I10 Essential (primary) hypertension; Z79.4 Long term (current) use of insulin

== ENCOUNTER 2020-02-10 19:30 | Observation (INO) | payer MEDICARE, OTHER ==
[~2020-02-10] VITALS: Ht 154.9 cm; Wt 59.0 kg
[2020-02-10 20:16] LABS: ARTERIAL BLD GAS TCO2 CT 29.7; ARTERIAL BLOOD GAS BASE EXCESS 3.7 (-2-2); ARTERIAL BLOOD GAS HCO3 28.4 meq/L (22-26); ARTERIAL BLOOD GAS PCO2 42.9 mmHg (35-45); ARTERIAL BLOOD GAS pH 7.44 (7.35-7.45)
[2020-02-10 20:29] LABS: BASO # 0.1 (0.0-0.2); BASO % 0.6 % (0.0-2.0); EOS # 0.1 (0.0-0.7); EOS % 0.9 % (0-4.0); GRAN # 6.3 (1.4-6.5); GRAN % 70.8 % (42.2-75.2); HEMOGLOBIN 11.2 g/dl (12.5-16.0); LYMPH # 1.7 (1.2-3.4); LYMPH % 19.2 % (20.0-51.0); MEAN CELL VOLUME 88 fl (80.0-100.0); MEAN CORPUSCULAR HEMOGLOBIN 30 pg (27.0-31.0); MEAN CORPUSCULAR HGB CONC 33 g/dl (33.0-37.0); MEAN PLATELET VOLUME 9.3 fl (7.4-10.4); MONO # 0.7 (0.1-0.6); MONO % 8.2 % (1.7-9.3); PLATELET COUNT 239 K/mm3 (130-400); REDCELL DISTRIBUTION WIDTH-CV 13.2 % (11.5-14.5)
[2020-02-10 20:45] LABS: HEMATOCRIT 33.6 % (37.0-47.0)
[2020-02-10 20:53] LABS: ALBUMIN 3.5 gm/dL (3.5-5.0); BILIRUBIN,TOTAL 0.7 mg/dL (0.0-1.0); CREATININE, serum 1.09 (0.52-1.25); TOTAL PROTEIN 6.8 gm/dL (6.4-8.2)
[2020-02-10 21:08] LABS: COLLECTION METHOD CATHETER
[2020-02-10 21:13] LABS: MUCOUS Present /lpf; PH 6 (5-8); SQUAMOUS EPITHELIAL 0-2 /hpf; URINE APPEARANCE Clear; URINE BACTERIA Rare /hpf; URINE BILIRUBIN Negative (NEGATIVE); URINE BLOOD 2+ (NEGATIVE); URINE COLOR Yellow; URINE GLUCOSE 1+ (NEGATIVE); URINE KETONE 1+ (NEGATIVE); URINE LEUKOCYTE ESTERASE Negative (NEGATIVE); URINE NITRATE Negative (NEGATIVE); URINE PROTEIN(semi-quant) 3+ (NEGATIVE); URINE RBC 0-2 /hpf; URINE UROBILINOGEN Negative (NEGATIVE)
[2020-02-11] VITALS (8 sets, daily range): BP systolic 134–188; BP diastolic 50–79; PULSE 56–71; TEMP 97.6–98.9
--- NOTE | 2020-02-11 00:23 | NUR ---
PATIENT ARRIVES TO UNIT VIA THE CART FROM THE EMERGENCY ROOM. PATIENT IS ALERT AND ORIENTATED BUT CAN BE FORGETFUL. PATIENT IS VERY WEAK. PATIENT CAN BARELY LIFT HER LEGS OFF OF THE BED. PATIENT HAS AN IV IN HER RIGHT AC THAT HAS FLUIDS INFUSING AT 100 ML/HR. PATIENT USUALLY WEARS DENTURES BUT DOES NOT HAVE THEM IN CURRENTLY. PATIENT IS VERY HARD OF HEARING AND LEFT HER HEARING AIDES AT HOME. PATIENT SAID SHE HAD SOME DISCOMFORT IN HER NECK BUT THOUGHT IT WAS DUE TO THE WAY SHE HAD LAID PREVIOUSLY. PATIENT IS ONLY SOMEWHAT AWARE OF HER MEDICATIONS SO I DID THE MED REC THE BEST THAT WE COULD GET DONE. PATIENT USED THE BED GOLD.
--- NOTE | 2020-02-11 00:59 | NUR ---
DID A BEDSIDE SWALLOW STUDY. PATIENT WAS ABLE TO DRINK WATER AND NOT HAVE ANY DIFFICULTIES
--- NOTE | 2020-02-11 05:01 | NUR ---
since the patient has been up on the floor, she has been sleeping pretty soundly. we have been using the bed lainez with this patient as this nurse feels that the patient is very weak as it is hard for her to lift her legs off of the bed. patient has remained alert and orientated through the shift. patient has scored a 4 on the stroke scale because of her legs and not being able to really resist any pressure that is exerted on them. patient has call light within reach. will continue to monitor. will report off to day shift.
--- NOTE | 2020-02-11 08:45 | NUR ---
Assessment complete. Patient asleep in bed on entry. Awoke with stimulation but ueffected by voice. She was very drowsy through assessment but is orientedx4. Extremities are still very weak, pt could only lift legs approx. 1in off the bed. Hand graps were also very weak but equal. IV site is CD&I, currently infusing at 100 ml/hr. Patient chose to return to sleep upon my departure from room. Will continue to monitor. No other needs at this time. Call light is in reach.
--- NOTE | 2020-02-11 14:13 | NUR ---
Pt has been stable since arriving back from her MRI this morning. She has been napping comfortably. Woke pt for lunch, set up and made sure she was comfortable. She continues to be alert and oriented x4 but extreme weakness is still present in arms and legs. Will continue to monitor. No other needs at this time. Call light is in reach, fall precautions are in place.
--- NOTE | 2020-02-11 15:37 | NUR ---
SW's met with the patient to discuss discharge plan. The patient lives in [place] with her mother. Her mother is at [facility] for rehab at this time. The patient reports independence with ADLs and has a cane and walker. She receives private duty services 3xs a week for two hours from [facility]. The patient's PCP is Dr. Tato Pina and she receives her medications from [facility]. She reports no difficulties obtaining her meds. The patient does not have advanced directives in EMR, but she reports that she does have them completed and that her son, Shola Fink (ph#[phone]), is her DPOA-HC. Shola lives in [place]. PT/OT worked with the patient and recommend SNF. FLEX discussed this with the patient. The patient is agreeable to rehab and chose 1) [facility] 2) [facility]. FLEX then contacted the patient's son, Shola, and he confirmed the above information. He agrees that the patient is not safe to return straight home upon discharge and would need post-acute rehab. He agreed with the patient's preferences. Shola confirms that he is the patient's DPOA-HC and he states that he can email the documents to FLEX tomorrow. FLEX provided him with FLEX's email address. FLEX contacted and faxed a referral to both facilities. SW awaiting their screens.
--- NOTE | 2020-02-11 17:34 | NUR ---
PT BLOOD SUGAR 35 PER REPORT FROM MANAGER SOCIAL SERVICES. SOY ULRICH NOTIFIED, HYPOGLYCEMIC PROTOCOL INITIATED, 1/2 AMP D50 ADMINISTERED. WILL RECHECK SUGAR IN 15 MINUTES AND CONTINUE TO MONITOR.
--- NOTE | 2020-02-11 17:39 | NUR ---
BLOOD SUGAR RECHECK 136. PATIENT REMAINS DROWSY BUT AROUSABLE TO VOICE, HAS BEEN DROWSY MOST OF THE DAY. nO FURTHER NEEDS. WILL CONTINUE TO MONITOR.
--- NOTE | 2020-02-11 17:58 | NUR ---
pT IS NOW STABLE AND MORE ALERT. SHE MOVED FROM RECLINER BACK TO BED VIA 2 ASSIST AT THIS TIME. SHE IS NOW COMFORTABLE IN BED. REMINDED HER TO CALL WHEN SHE NEEDS TO USE THE RESTROOM OR BECOMES WET FROM INCONTINENCE, SHE STATED SHE UNDERSTOOD. NO OTHER NEEDS AT THIS TIME. CALL LIGHT IS IN REACH.
--- NOTE | 2020-02-11 20:00 | NUR ---
Blood glucose 68 at this time. PCT in room at this time helping pt eat dinner and drink orange juice. Will continue to monitor blood glucose once pt finishes eating dinner.
--- NOTE | 2020-02-11 20:50 | NUR ---
Pt assessment completed and documented. Pt just recently finished eating dinner with assistance from PCT. Pt was able to eat about 40% of dinner. Pt resting in bed and is drowsy at this time, however will arouse when you say her name and talk to her. Pt oriented x4 and answers questions appropriately. Generalized weakness noted. IVF infusing per orders to right ac IV site. Pt denies any other needs at this time. Call light within reach. Bed alarm on. Will continue to monitor.
--- NOTE | 2020-02-11 22:10 | NUR ---
BG CHECKED AT THIS TIME- BG 152
[2020-02-12 03:54] VITALS: BP 153/53; PULSE 59; TEMP 98.1
--- NOTE | 2020-02-12 04:54 | NUR ---
Pt had uneventful shift. Pt drowsy throughout most of the night but easily arousable. Pt more alert in room at this time watching television. Pt has remained A&O x4 during the night. Still continues to have complaints of generalized weakness. Denied pain. IVF infusing per orders to right ac IV. Pt denies any other needs. Bed alarm on. Call light within reach.
[2020-02-12 06:54] LABS: BASO % 0.6 % (0.0-2.0); EOS # 0.1 (0.0-0.7); EOS % 1.8 % (0-4.0); GRAN # 4.7 (1.4-6.5); GRAN % 66.9 % (42.2-75.2); HEMOGLOBIN 10.5 g/dl (12.5-16.0); LYMPH # 1.5 (1.2-3.4); LYMPH % 20.9 % (20.0-51.0); MEAN CELL VOLUME 88 fl (80.0-100.0); MEAN CORPUSCULAR HEMOGLOBIN 29 pg (27.0-31.0); MEAN CORPUSCULAR HGB CONC 33 g/dl (33.0-37.0); MEAN PLATELET VOLUME 9.3 fl (7.4-10.4); MONO # 0.7 (0.1-0.6); MONO % 9.5 % (1.7-9.3); PLATELET COUNT 230 K/mm3 (130-400); RED BLOOD COUNT 3.66 M/mm3 (4.10-5.30); REDCELL DISTRIBUTION WIDTH-CV 13.3 % (11.5-14.5)
[2020-02-12 07:00] LABS: CREATININE, serum 1.07 (0.52-1.25); POTASSIUM 3.5 mmol/L (3.4-5.0)
[2020-02-12 07:04] LABS: HEMATOCRIT 32.3 % (37.0-47.0)
[2020-02-12 07:11] VITALS: BP 159/55; PULSE 63; TEMP 98.8
[2020-02-12 11:10] VITALS: BP 143/51; PULSE 67; TEMP 98.8
--- NOTE | 2020-02-12 11:17 | NUR ---
PATIENT IS AWAKE AND ALERT IN BED. ADMINISTERED MEDICATIONS THIS MORNING AND PATIENT WAS ABLE TO TAKE MEDICATIONS WITH APPLESAUCE WITHOUT DIFFICULTY. MOVES EXTREMITIES BUT IS NOTED TO BE VERY WEAK. COMPLAINS OF PAIN TO HER LEFT ANKLE, IS UNSURE OF HOW SHE WOULD HAVE OBTAINED AN INJURY. NO OTHER NEEDS ARE IDENTIFIED. CALL LIGHT AND PERSONAL ITEMS ARE WITHIN REACH.
--- NOTE | 2020-02-12 14:11 | NUR ---
[facility] contacted and reports that the patient has home health services through them for PT/OT.
--- NOTE | 2020-02-12 15:00 | NUR ---
The patient's insurance is denying an inpatient stay. The patient was downgraded to observation status. FLEX and taxonomist, Jane, met with the patient to inform. FLEX presented and read the Medicare Outpatient Observation Notice. The patient verbalized understanding and gave FLEX approval to sign the form on her behalf. FLEX provided her with a copy. FLEX contacted and notified [facility] and [facility] of the patient's status change. Both Cony at [facility] and Krystian at [facility] report that since Medicare is denying an inpatient stay, then a stay at [facility] would be private pay. FLEX contacted and updated the patient's son, Shola. Shola was agreeable for FLEX to send referrals to [facility] and [facility]. FLEX consulted IPR Director, Queta. FLEX attempted to contact Mena at [facility]. FLEX left her a voicemail and faxed the referral. SW awaiting their screens.
[2020-02-12 16:03] VITALS: BP 125/41; PULSE 59; TEMP 98.4
--- NOTE | 2020-02-12 16:39 | NUR ---
Mena, at [facility], reports that they would not have a bed available until the middle of next week. The patient's son was agreeable for FLEX to send referrals to [facility], [facility], [facility] [place], and [facility]. SW faxed referrals to those facilities. SW awaiting screens.
--- NOTE | 2020-02-12 19:18 | NUR ---
REPORT GIVEN TO ONCOMING SHIFT. PATIENT IS SITTING UP IN BED EATING SUPPER. DID SPEAK WITH SON AND GAVE HIM AN UPDATE ON PATIENT STATUS. CALL LIGHT IS WITHIN REACH.
--- NOTE | 2020-02-12 19:30 | NUR ---
Recieved report from Karen. Seen patient awake ,lying in bed. Denies pain. With INT on right AC. She denies pain. She requested for bedpan but upon checking on her briefs she already have a trace of poop. Changed briefs and repositioned patient.
[2020-02-12 20:58] VITALS: BP 147/54; PULSE 64; TEMP 98.6
[2020-02-13 00:22] VITALS: BP 155/51; PULSE 65; TEMP 98.4
[2020-02-13 04:35] VITALS: BP 156/68; PULSE 63; TEMP 98.7
--- NOTE | 2020-02-13 05:00 | NUR ---
Patient asleep but easily awaken. She denies pain. Checked on her briefs and it is wet. Bed linens and briefs were changed.
--- NOTE | 2020-02-13 07:00 | NUR ---
Bedside shift report received from AYDIN Pal. Pt in bed resting without needs, will continue to monitor.
[2020-02-13 09:38] VITALS: BP 147/57; PULSE 66; TEMP 97.7
--- NOTE | 2020-02-13 09:48 | NUR ---
Assessment charted. Pt in chair at side of bed. Alarm on, per PT was a max assist to the chair. Hospitalist rounding, discussed plan for possible IPR screen. INT to R A/C. Portacath to [facility] not accessed since ER. Pt is able to answer all orientation questions but needs a lot of time and frequently having to ask her several times. Will continue to monitor.
--- NOTE | 2020-02-13 10:52 | NUR ---
The patient's son, Shola, emailed a copy of the patient's DPOA-HC to financial counselor, Cheyanne. Financial Counseling then completed a Medicaid application with the patient's son, Shola. Financial Counseling also fowarded the patient's DPOA-HC to FLEX. FLEX placed a copy of the document in the patient's chart. FLEX met with the patient and presented and explained the Medicaid Release Forms to the patient. The patient signed forms. FLEX emailed the signed forms back to Financial Counseling. [facility] reports that they are not in contract with Medicare [employer]. Katrin, of [facility], reports that they are checking the patient's finances but that they most likey will not be able to accept today. Lidia, at [facility], reports that they do not have any beds at this time. Sarah, at [facility], reports that they would need the patient's full Medicaid application. Financial Counseling is unable to release full Medicaid Application. FLEX contacted and updated the patient's son, Shola. Shola would like for FLEX to send a referral to [facility]. FLEX contacted and faxed a referral to [facility]. FLEX then discussed the possiblity of having to private pay at a facility vs the patient returning to his home with resuming home health and private duty services. Shola reports that he needs some time to think about this. FLEX awaiting screens and will continue to follow.
[2020-02-13 12:02] VITALS: BP 148/51; PULSE 67; TEMP 98.3
[2020-02-13] MEDS ORDERED: ZESTRIL 10MG10 MG PO (13:17)
[2020-02-13] MEDS ORDERED: ASPIRIN E.C. 8181 MG PO (13:18)
[2020-02-13] MEDS ORDERED: MELATONIN3 M1 PO (13:19)
[2020-02-13] MEDS ORDERED: NOVOLOG 100U100 U/M1 SQ (13:19)
--- NOTE | 2020-02-13 13:38 | NUR ---
Rebeka, at [facility], reports that they are able to accept the patient and that [facility] is the accepting provider. FLEX informed the patient's son, Shola. Shola is agreeable with the patient going to [facility] and he states that his can provide transport for the patient. FLEX notified the clinical team. The patient is to discharge today, 02/12, to [facility]. Transportation to be by private vehicle, via the patient's [id number] around 1400. No additional needs at this time.
[2020-02-13 13:50] VITALS: BP 148/51; PULSE 67; TEMP 98.3
--- NOTE | 2020-02-13 14:10 | NUR ---
INT dc'd for discharge. Pt prepped for discharge at this time, own clothes soiled so sent in gown. Pt left with all bleongings to be driven to [facility] bed by private vehicle. Left wtih packet. Escorted out to ER entrance via w/c with medical staff. Criteria met.
--- NOTE | 2020-02-15 12:06 | NUR ---
SW received message from [facility] staff stating they needed authorization for PT/OT for patient. SW called to confirm documentation needed, and [facility] staff provided that she was unsure as to what the message recieved was in regards to due to already having documentation. FLEX informed [facility] staff that authorzation for PT/OT will be sent over just in case needed to verify. No additional needs.
== END 2020-02-13 14:30 ==
LOC: COL.ER 19:30 → MEDICAL 21:51
PROVIDERS: Family Medicine; Physician Assistant; ADMIT Hospitalist
DX: M62.82 Rhabdomyolysis (principal); J44.9 Chronic obstructive pulmonary disease, unspecified; J84.10 Pulmonary fibrosis, unspecified; R09.02 Hypoxemia; E78.5 Hyperlipidemia, unspecified; E11.22 Type 2 diabetes mellitus with diabetic chronic kidney disease; I13.0 Hypertensive heart and chronic kidney disease with heart failure and stage 1 through stage 4 chronic kidney disease, or unspecified chronic kidney disease; I50.30 Unspecified diastolic (congestive) heart failure; E11.649 Type 2 diabetes mellitus with hypoglycemia without coma; K21.9 Gastro-esophageal reflux disease without esophagitis; Z85.3 Personal history of malignant neoplasm of breast; N18.9 Chronic kidney disease, unspecified; G47.00 Insomnia, unspecified; Z92.21 Personal history of antineoplastic chemotherapy; Z88.0 Allergy status to penicillin; Z88.5 Allergy status to narcotic agent; Z88.2 Allergy status to sulfonamides; Z79.4 Long term (current) use of insulin; Z79.82 Long term (current) use of aspirin; Z99.81 Dependence on supplemental oxygen; Z87.891 Personal history of nicotine dependence
CPT/HCPCS: 99222-AI; 99231-AI; 99232-AI; A9585; G0378; J1650; J1815; J2060; J7030; J7120

== ENCOUNTER 2020-05-25 17:42 | Inpatient (IN) | payer MEDICARE ==
[~2020-05-25] VITALS: Ht 160 cm; Wt 53.0 kg
[~2020-05-25 17:42] MED LIST changes: +ASPIRIN E.C. 8181 MG PO; +MELATONIN3 M1 PO
[2020-05-25 18:14] LABS: BASO % 0.4 % (0.0-2.0); EOS # 0.1 (0.0-0.7); EOS % 1.7 % (0-4.0); GRAN # 6.6 (1.4-6.5); GRAN % 78.4 % (42.2-75.2); HEMATOCRIT 40.2 % (37.0-47.0); HEMOGLOBIN 12.9 g/dl (12.5-16.0); LYMPH # 1.1 (1.2-3.4); LYMPH % 12.9 % (20.0-51.0); MEAN CELL VOLUME 88 fl (80.0-100.0); MEAN CORPUSCULAR HEMOGLOBIN 28 pg (27.0-31.0); MEAN CORPUSCULAR HGB CONC 32 g/dl (33.0-37.0); MEAN PLATELET VOLUME 9.2 fl (7.4-10.4); MONO # 0.5 (0.1-0.6); MONO % 6.2 % (1.7-9.3); PLATELET COUNT 255 K/mm3 (130-400); RED BLOOD COUNT 4.58 M/mm3 (4.10-5.30); REDCELL DISTRIBUTION WIDTH-CV 14.6 % (11.5-14.5)
[2020-05-25 18:22] LABS: INR 1.1 (0.8-3.0)
[2020-05-25 18:26] LABS: ALBUMIN 4.2 gm/dL (3.5-5.0); ALKALINE PHOSPHATASE 109 U/L (50-136); ANION GAP 15 mmol/L (7-16); AST,SGOT 22 U/L (15-37); BILIRUBIN,TOTAL 0.5 mg/dL (0.0-1.0); BLOOD UREA NITROGEN 20 mg/dL (7-17); C-REACTIVE PROTEIN 0.9 mg/dL (0.0-0.9); CALCIUM 9.5 mg/dL (8.4-10.2); CARBON DIOXIDE 24 mmol/L (22-30); CHLORIDE 98 mmol/L (98-107); CREATININE, serum 0.93 (0.52-1.25); GLUCOSE 123 mg/dL (74-106); SODIUM 137 mmol/L (137-145); TOTAL PROTEIN 7.4 gm/dL (6.4-8.2)
[2020-05-25 18:30] LABS: ALANINE AMINOTRANSFERASE 10 U/L (4-34)
[2020-05-25 18:35] LABS: TROPONIN-I < 0.012 ng/mL (0.000-0.035)
[2020-05-25 19:28] LABS: COLLECTION METHOD CATHETER
[2020-05-25 19:33] LABS: MUCOUS Present /lpf; PH 5 (5-8); SQUAMOUS EPITHELIAL 0-2 /hpf; URINE APPEARANCE Clear; URINE BACTERIA None Seen /hpf; URINE BILIRUBIN Negative (NEGATIVE); URINE BLOOD Negative (NEGATIVE); URINE COLOR Yellow; URINE GLUCOSE Negative (NEGATIVE); URINE KETONE Trace (NEGATIVE); URINE LEUKOCYTE ESTERASE Negative (NEGATIVE); URINE NITRATE Negative (NEGATIVE); URINE PROTEIN(semi-quant) 2+ (NEGATIVE); URINE UROBILINOGEN Negative (NEGATIVE)
[2020-05-25] MEDS ORDERED: ZOLOFT 100MG100 MG PO (19:59)
[2020-05-25] MEDS ORDERED: VALIUM 5MG T5 MG/TAB PO (19:59)
[2020-05-25] MEDS ORDERED: SINEMET 25/101 UDTAB PO (20:09)
[2020-05-25 21:15] VITALS: BP 161/57; PULSE 67; TEMP 98.4
[2020-05-26] VITALS (7 sets, daily range): BP systolic 109–156; BP diastolic 43–60; PULSE 62–74; TEMP 98–98.7
--- NOTE | 2020-05-26 01:18 | NUR ---
pt arrived from ED via bed. assessment completed, pt stated that she could not remember medications and was unable to answer health history questions. this nurse called pt son and obtained history from him. son stated that he does not know his mothers medications and could not remember the last time she took them. pt son stated that his would be able to answer questions on medications but that she had taken her sleeping pill for the night and would not wake until morning. this nurse will notify dayshift nurse of the situation. will continue to monitor.
--- NOTE | 2020-05-26 05:31 | NUR ---
pt sleeping in bed most of night, called for assitance. continues to be alert and oriented, poor memory of health history. no other needs at this time.
[2020-05-26 08:27] LABS: CALCIUM 8.8 mg/dL (8.4-10.2); CREATININE, serum 0.86 (0.52-1.25); POTASSIUM 3.6 mmol/L (3.4-5.0)
[2020-05-26 08:30] LABS: BASO % 0.4 % (0.0-2.0); EOS # 0.2 (0.0-0.7); EOS % 3.3 % (0-4.0); GRAN # 5.5 (1.4-6.5); GRAN % 74.8 % (42.2-75.2); HEMOGLOBIN 11.7 g/dl (12.5-16.0); LYMPH % 13.2 % (20.0-51.0); MEAN CELL VOLUME 88 fl (80.0-100.0); MEAN CORPUSCULAR HEMOGLOBIN 28 pg (27.0-31.0); MEAN CORPUSCULAR HGB CONC 32 g/dl (33.0-37.0); MEAN PLATELET VOLUME 9.9 fl (7.4-10.4); MONO # 0.6 (0.1-0.6); PLATELET COUNT 238 K/mm3 (130-400); RED BLOOD COUNT 4.18 M/mm3 (4.10-5.30); REDCELL DISTRIBUTION WIDTH-CV 14.6 % (11.5-14.5)
[2020-05-26 08:33] LABS: HEMATOCRIT 36.6 % (37.0-47.0)
[2020-05-26] MEDS ORDERED: LEVEMIR FLEX100 U/ML SQ (10:49)
--- NOTE | 2020-05-26 11:01 | NUR ---
Anesthesiologists' Assistant attended clinical rounds. The patient's status is now inpatient. After rounds, SW contacted the patient's [id number], Elisa #[phone] at work. The patient's son did not answer, he was at a doctor's appointment. Hospitalist dicussed the patient's care with Elisa.
--- NOTE | 2020-05-26 11:29 | NUR ---
First visit from the admissions specialist. No needs right now.
--- NOTE | 2020-05-26 16:04 | NUR ---
Medical Practitioners met with the patient to complete initial intake. The patient lives in [place] with her mother. The patient uses a walker daily and has assistance at home from a woman named Kavitha. The patient knew the company was new but did not know the name of the company that provides services. The patient's PCP is Dr. Pina and patient receives medications from [facility]. She states her brother or sister seed cone picker medications for her. The patient has advanced directives in the EMR and designate her son Shola #[phone]. Physical therapy is recommending post acute rehab. SW presented Medicare.[employer]s list of facilities in the [place] area. The patient's first choice is [facility] and second choice is [facility]. Referrals faxed. FLEX contacted the patient's son, Shola to introduce oneself and to review the discharge plan. The patient has a caregiver from 10am-7pm seven days a week [facility]. Shola lives in [place]. He buys groceries for the patient and visits as often as he can. Shola states the patient's mother is at [facility] at this time for rehab. Shola was in agreeance with the patient going to post acute rehab at discharge. FLEX collaborated the above information with the patient's nurse.
--- NOTE | 2020-05-26 21:23 | NUR ---
pt resting in bed, alert and oriented. asessment completed and medications given per MAR. pt requesting something to help her sleep, this nurse gave melatonin prn per orders from CASA Valdez. heart and lung sounds are normal, pt denies pain. no other needs at this time. will continue to monitor.
--- NOTE | 2020-05-26 23:39 | NUR ---
notified by HEBERT Jha that pt blood sugar was 49. gave pt juice and will recheck blood sugar. will continue to monitor.
--- NOTE | 2020-05-27 00:18 | NUR ---
Pt blood sugar was still low at 51, gave dextrose 12.5 mg per hyoglycemic protocol orders. rechecked blood sugar was 135. this nurse updated CASA Valdez and will continue to monitor blood sugar.
[2020-05-27 03:01] VITALS: BP 111/45; PULSE 65; TEMP 98.1
--- NOTE | 2020-05-27 03:41 | NUR ---
Pt blood sugars continue to trend down. gave pt some pudding and will continue to monitor blood sugar. pt stated that she didn't eat much dinner, what was served did not appeal to her. will continue to monitor.
--- NOTE | 2020-05-27 05:45 | NUR ---
pt resting in bed during the night. blood sugar was low at 49, gave dextrose per protocol. continued to monitor blood sugars, started to drop again. gave pt some pudding and blood sugar was 141. pt stated that she did not eat much dinner and that it did not appeal to her. CASA Valdez was updated on the situation throughout the night. no other needs at this time, will continue to monitor.
[2020-05-27 07:11] LABS: BASO % 0.6 % (0.0-2.0); EOS # 0.4 (0.0-0.7); EOS % 6.8 % (0-4.0); GRAN # 3.7 (1.4-6.5); GRAN % 58.8 % (42.2-75.2); HEMOGLOBIN 10.9 g/dl (12.5-16.0); LYMPH # 1.4 (1.2-3.4); MEAN CELL VOLUME 86 fl (80.0-100.0); MEAN CORPUSCULAR HEMOGLOBIN 28 pg (27.0-31.0); MEAN CORPUSCULAR HGB CONC 32 g/dl (33.0-37.0); MEAN PLATELET VOLUME 9.7 fl (7.4-10.4); MONO # 0.7 (0.1-0.6); MONO % 10.6 % (1.7-9.3); PLATELET COUNT 233 K/mm3 (130-400); RED BLOOD COUNT 3.96 M/mm3 (4.10-5.30); REDCELL DISTRIBUTION WIDTH-CV 14.5 % (11.5-14.5)
[2020-05-27 07:13] LABS: HEMATOCRIT 34.2 % (37.0-47.0)
[2020-05-27 07:20] LABS: CALCIUM 9.2 mg/dL (8.4-10.2); CREATININE, serum 0.96 (0.52-1.25); POTASSIUM 3.9 mmol/L (3.4-5.0)
[2020-05-27 07:52] VITALS: BP 124/51; PULSE 69; TEMP 98
--- NOTE | 2020-05-27 08:13 | NUR ---
Pt assessment complete. Pt is sitting up in bed playing on her phone upon entry, she is alert and oriented to self and place. Denies pain at this time. No SOB or cough. Pt had no seizures overnight per report. Up to restroom with heavy one assist. Seizure precautions in place. Call light within reach.
--- NOTE | 2020-05-27 10:08 | NUR ---
Cony from [facility] reports they can accept the patient for post acute rehab.
[2020-05-27 11:28] VITALS: BP 125/47; PULSE 70; TEMP 98
--- NOTE | 2020-05-27 15:35 | NUR ---
Certified Income Tax Preparer contacted the patient's son to provide an update and inform him about [facility] accepting for post acute rehab. He was in agreeance with the patient going there for rehab.
[2020-05-27 15:46] VITALS: BP 130/51; PULSE 60; TEMP 98.1
--- NOTE | 2020-05-27 15:53 | NUR ---
Ruby On Rails Web Developer faxed discharge orders to [facility]. SW will continue to follow.
--- NOTE | 2020-05-27 19:03 | NUR ---
Pt's blood sugars stable through the day. No seizure activities visualized. pt denied any pain. Seizure precautions in place. Report given to AYDIN Joe.
[2020-05-27 19:18] VITALS: BP 133/55; PULSE 73; TEMP 98
--- NOTE | 2020-05-27 21:01 | NUR ---
Resting in bed. Assessment complete. Lungs clear. Heart sounds normal. Bowels active x4. Pulses present throughout. No edema noted. INT left forearm without complications. Patient provided with melatonin at patient request. Denies needs at this time. Call light in reach.
[2020-05-27 23:26] VITALS: BP 129/47; PULSE 69; TEMP 97.8
--- NOTE | 2020-05-27 23:42 | NUR ---
Resting in bed. Denies needs. Denies pain. Call light in reach.
[2020-05-28 03:23] VITALS: BP 130/47; PULSE 71; TEMP 97.9
--- NOTE | 2020-05-28 03:25 | NUR ---
Resting in bed. Denies needs. Call light in reach.
--- NOTE | 2020-05-28 05:07 | NUR ---
Patient had uneventful night. Resting in bed this AM. Call light in reach.
[2020-05-28 06:43] LABS: BASO # 0.1 (0.0-0.2); BASO % 0.9 % (0.0-2.0); EOS # 0.4 (0.0-0.7); EOS % 6.4 % (0-4.0); GRAN % 60.6 % (42.2-75.2); HEMOGLOBIN 11.3 g/dl (12.5-16.0); LYMPH # 1.6 (1.2-3.4); LYMPH % 23.6 % (20.0-51.0); MEAN CELL VOLUME 88 fl (80.0-100.0); MEAN CORPUSCULAR HEMOGLOBIN 28 pg (27.0-31.0); MEAN CORPUSCULAR HGB CONC 32 g/dl (33.0-37.0); MEAN PLATELET VOLUME 9.9 fl (7.4-10.4); MONO # 0.6 (0.1-0.6); MONO % 8.3 % (1.7-9.3); PLATELET COUNT 248 K/mm3 (130-400); RED BLOOD COUNT 4.02 M/mm3 (4.10-5.30); REDCELL DISTRIBUTION WIDTH-CV 14.4 % (11.5-14.5)
[2020-05-28 06:44] LABS: HEMATOCRIT 35.4 % (37.0-47.0)
[2020-05-28 06:55] LABS: CALCIUM 9.3 mg/dL (8.4-10.2); CREATININE, serum 1.02 (0.52-1.25)
--- NOTE | 2020-05-28 07:00 | NUR ---
Report given to AYDIN Calabrese
[2020-05-28 07:43] VITALS: BP 114/69; PULSE 63; TEMP 98.5
[2020-05-28] MEDS ORDERED: PROTONIX 40MG T40 MG PO (07:51)
[2020-05-28] MEDS ORDERED: ZOFRAN ODT4 MG PO (08:03)
--- NOTE | 2020-05-28 10:31 | NUR ---
PT RESTING IN BED. PT TO DISCHARGE TO [facility] LATER TODAY. VSS, PT HAS NOT HAD ANY SIEZURE ACTIVITY THIS AM.
--- NOTE | 2020-05-28 11:14 | NUR ---
REVIEWED DISCHARGE INSTRUCTIONS WITH PATIENT. TAKEN TO FRONT IN WHEEL CHAIR FOR TRANSPORTATION HOME.
--- NOTE | 2020-05-28 16:57 | NUR ---
Crossword Puzzle Maker attended clinical rounds and patient ready for discharge. FLEX contacted Cony at [facility] then faxed updates/orders. FLEX left a message for patient's son, Shola. FLEX was then approached by SERG Avelar who advised patient's son, Shola will be picking up patient and taking her home. FLEX contacted Shola who advised patient has a caregiver from [facility] and that they are in patient's home seven days a week, from 10:00am to 7:00pm. Shola advised he spoke with Dr. Pina's nurse yesterday and they agreed patient could be managed at home. Shola states patient's caregiver is Kavitha who administers patient's medications and does exercises with patient. FLEX contacted [employer] and confirmed that patient does have daily services from them. FLEX then contacted AYDIN Ellsworth at Dr. Pina's office who advised patient is well taken care of at home with current supports. Jodee does recognize that patient has been to the ED a few times for issues with her blood sugars. FLEX contacted Cony at [facility] to advise that patient will discharge home. FLEX collaborated the above information to Guanakito PERRIN.
== END 2020-05-28 11:16 | disposition home or self-care (01) | DRG 638 ==
LOC: COL.ER 17:42 → MEDICAL 18:30
PROVIDERS: Emergency Medicine; Physician Assistant; ADMIT Hospitalist
DX: E11.649 Type 2 diabetes mellitus with hypoglycemia without coma (principal); I50.32 Chronic diastolic (congestive) heart failure; E87.2 Acidosis; E87.1 Hypo-osmolality and hyponatremia; R56.9 Unspecified convulsions; G20 Parkinson's disease; F02.80 Dementia in other diseases classified elsewhere, unspecified severity, without behavioral disturbance, psychotic disturbance, mood disturbance, and anxiety; E78.5 Hyperlipidemia, unspecified; K21.9 Gastro-esophageal reflux disease without esophagitis; J44.9 Chronic obstructive pulmonary disease, unspecified; F17.210 Nicotine dependence, cigarettes, uncomplicated; E87.6 Hypokalemia; J70.3 Chronic drug-induced interstitial lung disorders; I11.0 Hypertensive heart disease with heart failure; F32.9 Major depressive disorder, single episode, unspecified; Z86.73 Personal history of transient ischemic attack (TIA), and cerebral infarction without residual deficits; Z99.81 Dependence on supplemental oxygen; Z85.3 Personal history of malignant neoplasm of breast; Z88.0 Allergy status to penicillin; Z88.2 Allergy status to sulfonamides; Z88.6 Allergy status to analgesic agent; Z79.4 Long term (current) use of insulin
CPT/HCPCS: OP; 99223-AI; 99232-AI; 99239; J1610; J1650; J1815; J3480; J7030; J7070

== ENCOUNTER 2020-06-04 18:49 | Emergency (ER) | payer MEDICARE ==
[~2020-06-04] VITALS: Ht 154.9 cm; Wt 59.1 kg
[~2020-06-04 18:49] MED LIST changes: +PROTONIX 40MG T40 MG PO; +SINEMET 25/101 UDTAB PO; +ZOFRAN ODT4 MG PO; +ZOLOFT 100MG100 MG PO
[2020-06-04 19:47] LABS: BASO % 0.6 % (0.0-2.0); EOS # 0.1 (0.0-0.7); EOS % 1.7 % (0-4.0); GRAN # 5.4 (1.4-6.5); GRAN % 81.4 % (42.2-75.2); HEMOGLOBIN 10.2 g/dl (12.5-16.0); LYMPH # 0.6 (1.2-3.4); MEAN CELL VOLUME 86 fl (80.0-100.0); MEAN CORPUSCULAR HEMOGLOBIN 28 pg (27.0-31.0); MEAN CORPUSCULAR HGB CONC 32 g/dl (33.0-37.0); MEAN PLATELET VOLUME 9.8 fl (7.4-10.4); MONO # 0.5 (0.1-0.6); MONO % 6.8 % (1.7-9.3); PLATELET COUNT 238 K/mm3 (130-400); RED BLOOD COUNT 3.71 M/mm3 (4.10-5.30); REDCELL DISTRIBUTION WIDTH-CV 14.4 % (11.5-14.5)
[2020-06-04 19:48] LABS: HEMATOCRIT 31.9 % (37.0-47.0)
[2020-06-04 19:59] LABS: ALBUMIN 3.5 gm/dL (3.5-5.0); BILIRUBIN,TOTAL 0.4 mg/dL (0.0-1.0); CREATININE, serum 0.97 (0.52-1.25); POTASSIUM 3.6 mmol/L (3.4-5.0); TOTAL PROTEIN 6.3 gm/dL (6.4-8.2)
[2020-06-04 20:45] LABS: COLLECTION METHOD CLEAN CATCH
[2020-06-04 20:51] LABS: MUCOUS Present /lpf; PH 6 (5-8); SQUAMOUS EPITHELIAL None Seen /hpf; URINE APPEARANCE Clear; URINE BACTERIA Rare /hpf; URINE BILIRUBIN Negative (NEGATIVE); URINE BLOOD Negative (NEGATIVE); URINE COLOR Yellow; URINE GLUCOSE 1+ (NEGATIVE); URINE KETONE Trace (NEGATIVE); URINE LEUKOCYTE ESTERASE Negative (NEGATIVE); URINE NITRATE Negative (NEGATIVE); URINE PROTEIN(semi-quant) 3+ (NEGATIVE); URINE UROBILINOGEN Negative (NEGATIVE)
[2020-06-04 23:25] VITALS: BP 150/63; PULSE 68; TEMP 98.2
== END 2020-06-04 23:33 | disposition home or self-care (01) ==
LOC: COL.ER 18:49
PROVIDERS: Family Medicine
DX: E16.2 Hypoglycemia, unspecified (principal); E86.0 Dehydration; J44.9 Chronic obstructive pulmonary disease, unspecified; E11.9 Type 2 diabetes mellitus without complications; I10 Essential (primary) hypertension; F03.90 Unspecified dementia, unspecified severity, without behavioral disturbance, psychotic disturbance, mood disturbance, and anxiety; G20 Parkinson's disease; Z85.3 Personal history of malignant neoplasm of breast; Z88.0 Allergy status to penicillin; Z88.2 Allergy status to sulfonamides; Z88.6 Allergy status to analgesic agent; Z79.82 Long term (current) use of aspirin; Z79.4 Long term (current) use of insulin
CPT/HCPCS: J7120

== ENCOUNTER 2020-07-03 14:20 | Emergency (ER) | payer MEDICARE ==
[~2020-07-03] VITALS: Ht 157.5 cm; Wt 59.1 kg
[2020-07-03 14:23] VITALS: TEMP 98.8
[2020-07-03 14:57] LABS: BASO % 0.3 % (0.0-2.0); EOS % 0.3 % (0-4.0); GRAN # 7.9 (1.4-6.5); GRAN % 88.8 % (42.2-75.2); HEMATOCRIT 38.6 % (37.0-47.0); HEMOGLOBIN 12.3 g/dl (12.5-16.0); LYMPH # 0.4 (1.2-3.4); LYMPH % 4.8 % (20.0-51.0); MEAN CELL VOLUME 84 fl (80.0-100.0); MEAN CORPUSCULAR HEMOGLOBIN 27 pg (27.0-31.0); MEAN CORPUSCULAR HGB CONC 32 g/dl (33.0-37.0); MONO # 0.5 (0.1-0.6); MONO % 5.4 % (1.7-9.3); PLATELET COUNT 320 K/mm3 (130-400); RED BLOOD COUNT 4.61 M/mm3 (4.10-5.30); REDCELL DISTRIBUTION WIDTH-CV 16.1 % (11.5-14.5)
[2020-07-03 15:00] LABS: INR 1.1 (0.8-3.0); PROTHROMBIN TIME 12.8 SECONDS (9.7-12.8)
[2020-07-03 15:03] LABS: PARTIAL THROMBOPLASTIN TIME 28.3 SECONDS (26.0-37.0)
[2020-07-03 15:31] LABS: ALANINE AMINOTRANSFERASE 8 U/L (4-34); ALBUMIN 4.2 gm/dL (3.5-5.0); ALKALINE PHOSPHATASE 119 U/L (50-136); ANION GAP 18 mmol/L (7-16); AST,SGOT 16 U/L (15-37); BILIRUBIN,TOTAL 0.8 mg/dL (0.0-1.0); BLOOD UREA NITROGEN 22 mg/dL (7-17); CALCIUM 9.5 mg/dL (8.4-10.2); CARBON DIOXIDE 22 mmol/L (22-30); CHLORIDE 97 mmol/L (98-107); CREATININE, serum 0.97 (0.52-1.25); GLUCOSE 288 mg/dL (74-106); POTASSIUM 3.4 mmol/L (3.4-5.0); SODIUM 137 mmol/L (137-145); TOTAL PROTEIN 7.1 gm/dL (6.4-8.2)
[2020-07-03 15:34] LABS: ALCOHOL(ethanol),MEDICAL < 10 mg/dL
[2020-07-03] MEDS ORDERED: LEVEMIR FLEX100 U/ML SQ (15:38)
[2020-07-03] MEDS ORDERED: NOVOLOG FLEX100 U/ML SQ (15:38)
[2020-07-03] MEDS ORDERED: VALIUM 5MG T5 MG/TAB PO (15:39)
[2020-07-03 17:57] LABS: COLLECTION METHOD CLEAN CATCH
[2020-07-03 18:02] LABS: MUCOUS Present /lpf; PH 5 (5-8); SQUAMOUS EPITHELIAL 0-2 /hpf; URINE APPEARANCE Clear; URINE BACTERIA None Seen /hpf; URINE BILIRUBIN Negative (NEGATIVE); URINE BLOOD Negative (NEGATIVE); URINE COLOR Yellow; URINE GLUCOSE 1+ (NEGATIVE); URINE KETONE 1+ (NEGATIVE); URINE LEUKOCYTE ESTERASE Negative (NEGATIVE); URINE NITRATE Negative (NEGATIVE); URINE PROTEIN(semi-quant) 2+ (NEGATIVE); URINE RBC 0-2 /hpf; URINE UROBILINOGEN Negative (NEGATIVE); URINE WBC 0-2 /hpf
[2020-07-03] MEDS ORDERED: KEPPRA 500MG500 MG PO (18:21)
[2020-07-03 19:13] VITALS: BP 157/73; PULSE 87
== END 2020-07-03 19:15 | disposition home or self-care (01) ==
LOC: COL.ER 14:20
PROVIDERS: Emergency Medicine
DX: G40.909 Epilepsy, unspecified, not intractable, without status epilepticus (principal); E11.9 Type 2 diabetes mellitus without complications; G20 Parkinson's disease; I10 Essential (primary) hypertension; J44.9 Chronic obstructive pulmonary disease, unspecified; Z88.0 Allergy status to penicillin; Z88.2 Allergy status to sulfonamides; Z88.5 Allergy status to narcotic agent; Z79.4 Long term (current) use of insulin; Z85.3 Personal history of malignant neoplasm of breast; Z79.82 Long term (current) use of aspirin
CPT/HCPCS: J1953